=== PATIENT | male | born 1960 | race Caucasian/White ===

== ENCOUNTER 2018-12-23 22:42 | Emergency (ER) | payer BC ==
--- NOTE | 2018-12-23 23:05 | RAD ---
3 views left wrist: 12/23/2018 COMPARISON: None HISTORY: Fall, trauma, pain FINDINGS: No definite fracture or dislocation. There is a subtle lucency identified on the lateral ex amination involving the anterior cortex of the distal left radius. This could represent nondisplaced fracture or artifact. Correlation for point tenderness in this region is required. No widening of the scapholunate interval. Alignment appears normal on the lateral examination. If sym ptoms persist, follow-up imaging in 7-10 days with dedicated scaphoid views recommended. IMPRESSION: Subtle lucency overlies the anterior distal left radial cortex on the lateral view as det michaela above.
== END 2018-12-24 00:47 | disposition home or self-care (01) ==
LOC: ERS 22:42
DX: S52.502A Unspecified fracture of the lower end of left radius, initial encounter for closed fracture (principal); I10 Essential (primary) hypertension; Z79.899 Other long term (current) drug therapy; W19.XXXA Unspecified fall, initial encounter
CPT/HCPCS: 25600

== ENCOUNTER 2019-05-14 12:47 | Outpatient (CLI) | payer MEDICARE, BC ==
[~2019-05-14 12:47] MED LIST: Gadobenate Dimeglumine 529 MG/1 ML (20ML VIAL) ONE
--- NOTE | 2019-05-14 15:06 | MRI ---
MRI of the lumbar spine with and without contrast 05/14/2019 COMPARISON: None HISTORY: Lumbar radiculopathy, back pain radiating down bilateral lower extremities with bilateral fo ot tingling TECHNIQUE: Multiplanar multisequence MR imaging of the lumbar spine is provided with and without cont rast. FINDINGS: The sagittal STIR imaging demonstrates no focal area of osseous marrow edema. On the basis of 5 lumbar type vertebral bodies, the conus medullaris terminates at the T12-L1 level. Lumbar vertebral body height and alignment is within normal limits. T12-L1: Intervertebral disc height and signal intensity is within normal limits with no significant c entral canal or neural foraminal stenosis. L1-2: Intervertebral disc height and signal intensity is within normal limits with no significant daniel tral canal or neural foraminal stenosis. L2-3: Mild bilateral facet hypertrophy. Mild anterior osteophyte formation. No significant central ca nal or neural foraminal stenosis. L3-4: Intervertebral disc height and signal intensity is within normal limits with no significant daniel tral canal or neural foraminal stenosis. L4-5: There is disc space narrowing and disc desiccation with mild disc bulge. There is a small left paracentral annular tear. There is mild bilateral facet hypertrophy. No significant central canal or neural foraminal stenosis. L5-S1: No significant central canal or neural foraminal stenosis. Disc bulge. The imaged retroperitoneal structures appear grossly unremarkable. The postcontrast imaging demonstrates no abnormal enhancement involving the contents of the thecal sa c, the intervertebral discs, or the imaged osseous structures. IMPRESSION: Mild degenerative disc disease as detailed above. Transcribed Date/Time: 05/14/2019 3:14 PM
--- NOTE | 2019-05-14 15:26 | MRI ---
Cervical spine MRI with and without contrast: 05/14/2019 COMPARISON: None HISTORY: Cervical pain with bilateral upper extremity radiculopathy TECHNIQUE: Multiplanar multisequence MR imaging of the cervical spine obtained with and without contr ast FINDINGS: Anterior discectomy and fusion hardware is present at C5-6. The sagittal STIR imaging demonstrates no focal area of osseous marrow edema. The craniocervical junction and cervicothoracic junction appear intact. There is no anterolisthesis o r retrolisthesis. No prevertebral soft tissue swelling is noted. C2-3: There is disc space narrowing and disc desiccation with no central canal stenosis. There is mil d bilateral facet and uncovertebral osteophyte formation with no significant neural foraminal stenosis on either side. C3-4: There is disc space narrowing, disc desiccation, and mild disc bulge with partial effacement of the ventral thecal sac and mild central canal stenosis. Bilateral facet and uncovertebral osteophyte formation noted, left greater than right, with moderate right severe left neural foraminal stenosis. C4-5: There is disc space narrowing with disc desiccation and mild disc bulge partially effacing the ventral thecal sac and leading to a mild degree of central stenosis. There is bilateral facet and uncovertebral osteophyte formation with moderate bilateral neural foraminal stenosis, left greater th an right. C5-6: Bilateral facet hypertrophy. No central canal stenosis. Mild right neural foraminal stenosis. C6-7: Disc space narrowing with disc desiccation and mild disc bulge causes mild central canal stenos is. Bilateral uncovertebral osteophyte formation noted, left greater than right. Mild/moderate left neural foraminal stenosis. No significant right neural foraminal stenosis. C7-T1: No central canal or neural foraminal stenosis. No focal area of abnormal signal intensity is identified within the cervical cord. Postcontrast imaging demonstrates no abnormal enhancement within the cervical spine. IMPRESSION: Postoperative and degenerative change within the cervical spine as detailed above. Transcribed Date/Time: 05/14/2019 3:48 PM
== END 2019-05-14 12:48 | disposition home or self-care (01) ==
LOC: BICMRI 12:47
PROVIDERS: ATTEND Neurological Surgery
DX: M47.22 Other spondylosis with radiculopathy, cervical region (principal); M51.16 Intervertebral disc disorders with radiculopathy, lumbar region; Z98.890 Other specified postprocedural states
CPT/HCPCS: 72156; 72158; 82565; A9577

== ENCOUNTER 2019-10-26 13:49 | Emergency (ER) | payer MEDICARE, OTHER ==
--- NOTE | 2019-10-26 14:42 | RAD ---
EXAM: Portable chest PROVIDED CLINICAL HISTORY: Shortness of breath COMPARISON: None FINDINGS: Cardiac and mediastinal silhouette is within normal limits. No focal consolidation, pleural fluid or pneumothorax evident. IMPRESSION: No evidence for an acute cardiopulmonary process.
[2019-10-26 15:00] LABS: #Eosinphils 0.1 thou/uL (0.0-0.7); #Lymphocytes 1.2 thou/uL (1.20-3.40); #Monocytes 0.9 thou/uL (0.11-0.59); #Neutrophils 9.7 thou/uL (1.40-6.50); %Basophils 0.3 % (0.0-1.0); %Eosinophils 0.7 % (0.0-10.0); %Lymphocytes 9.7 % (21.0-51.0); %Monocytes 7.6 % (0.0-10.0); %Neutrophils 81.8 % (42.0-75.0); Hemoglobin 15.1 g/dL (14.0-18.0); Mean Corpuscular HGB CONC 35.2 g/dL (32.0-36.0); Mean Corpuscular Hemoglobin 32.4 pg (27.0-31.0); Mean Platelet Volume 7.8 fL (7.4-10.4); Platelet Count 174 thou/uL (130-400); RBC Distribution Width 11.7 % (11.5-14.5); Red Blood Cell (RBC) Count 4.67 mill/uL (4.70-6.10); White Blood Cell (WBC) Count 11.9 thou/uL (4.8-10.8)
[2019-10-26 15:20] LABS: ALT (SGPT) 55 U/L (8-55); AST (SGOT) 35 U/L (5-34); Albumin 4.4 g/dL (3.5-5.0); Alkaline Phosphatase 63 U/L (40-110); Anion Gap 12 mmol/L (10-20); BUN (Urea Nitrogen) 18 mg/dL (8.4-25.7); Bilirubin, Total 0.6 mg/dL (0.2-1.2); Calc. Creatinine Clearance 0 mL/min (70-130); Calcium 9.3 mg/dL (7.8-10.44); Carbon Dioxide 26 mmol/L (22-29); Chloride 103 mmol/L (98-107); Estimated GFR-MDRD 71; Globulin 2.3 g/dL (2.4-3.5); Glucose 80 mg/dL (70-105); Lipase 45 U/L (8-78); Potassium 4.7 mmol/L (3.5-5.1); Protein, Total 6.7 g/dL (6.0-8.3); Sodium 136 mmol/L (136-145)
== END 2019-10-26 15:55 | disposition home or self-care (01) ==
LOC: ERS 13:49
DX: R06.00 Dyspnea, unspecified (principal); I10 Essential (primary) hypertension; I49.9 Cardiac arrhythmia, unspecified; Z79.899 Other long term (current) drug therapy
CPT/HCPCS: 36415; 71045; 80053; 83690; 84484; 85025; 93005

== ENCOUNTER 2021-05-26 07:57 | Outpatient (CLI) | payer MEDICARE, OTHER | END 2021-05-26 07:58 | disposition home or self-care (01) | LOC: BICMAMMO 07:57 | PROVIDERS: ATTEND Registered Nurse | DX: M85.89 Other specified disorders of bone density and structure, multiple sites (principal) | CPT/HCPCS: 77080 ==

== ENCOUNTER 2021-07-02 11:55 | Outpatient (CLI) | payer MEDICARE, OTHER ==
[2021-07-02 13:32] LABS: Hemoglobin 15.5 g/dL (13.5-17.5); Mean Corpuscular HGB CONC 34.5 g/dL (32.0-36.0); Mean Corpuscular Hemoglobin 30.8 pg (27.0-33.0); Mean Corpuscular Volume 89.1 fl (81.2-95.1); Platelet Count 179 10x3/uL (150-450); RBC Distribution Width 12.2 % (11.5-14.5); Red Blood Cell (RBC) Count 5.04 10x6/uL (4.32-5.72); White Blood Cell (WBC) Count 5.8 10x3/uL (3.5-10.5)
[2021-07-02 13:40] LABS: PTT 24.2 sec (22.0-33.0); Prothrombin Time 11.4 sec (9.5-12.1)
[2021-07-02 13:46] LABS: Anion Gap 13 mmol/L (10-20); BUN (Urea Nitrogen) 16 mg/dL (8.4-25.7); Calc. Creatinine Clearance 0 mL/min (70-130); Calcium 9.6 mg/dL (7.8-10.44); Carbon Dioxide 26 mmol/L (23-31); Chloride 105 mmol/L (98-107); Glucose 144 mg/dL (80-115); Potassium 4.5 mmol/L (3.5-5.1); Sodium 139 mmol/L (136-145)
[2021-07-03 14:28] LABS: SARS-CoV-2 PCR by NAA Not Detected (NotDetected)
== END 2021-07-02 11:56 | disposition home or self-care (01) ==
LOC: LABBT 11:55
PROVIDERS: ATTEND Urology
DX: Z01.818 Encounter for other preprocedural examination (principal); Z12.5 Encounter for screening for malignant neoplasm of prostate; M47.26 Other spondylosis with radiculopathy, lumbar region; N40.1 Benign prostatic hyperplasia with lower urinary tract symptoms; I10 Essential (primary) hypertension; E11.9 Type 2 diabetes mellitus without complications; N39.41 Urge incontinence; R39.11 Hesitancy of micturition; N35.916 Unspecified urethral stricture, male, overlapping sites; Z87.898 Personal history of other specified conditions; Z20.822 Contact with and (suspected) exposure to COVID-19
CPT/HCPCS: 80048; 85027; 85610; 85730; 93005; U0003; U0005; 93010

== ENCOUNTER 2021-07-07 07:12 | Day surgery (SDC) | payer MEDICARE, OTHER ==
[2021-07-06 11:57] VITALS: BMI 31.9
[2021-07-07] MEDS ORDERED: Levofloxacin 500 mg/D5W 100 ml Premix Bag ONE (07:53)
[2021-07-07] MEDS ORDERED: Iothalamate Meglumine 60% 50 ML VIAL FS ONE (08:52)
[2021-07-07] MEDS ORDERED: Fentanyl 100 MCG/2 ML VIAL ONE ×2 (08:55→11:47)
[2021-07-07] MEDS ORDERED: Dexamethasone 20 MG/5 ML VIAL ONE (09:19)
[2021-07-07] MEDS ORDERED: Ondansetron PF 4 MG/2 ML Vial ONE (09:19)
[2021-07-07] MEDS ORDERED: Lidocaine 1% PF 5 ML VIAL ONE (09:19)
[2021-07-07] MEDS ORDERED: PROPOFOL 200 MG/20 ML VIAL ONE (09:19)
[2021-07-07] MEDS ORDERED: Oxybutynin 5 MG TAB ONE (10:45)
[2021-07-07] MEDS ORDERED: Phenazopyridine HCl 100 MG TAB ONE (10:45)
[2021-07-07] MEDS ORDERED: HYDROcodone/Acetaminophen 5/325 mg Tablet ONE (12:19)
== END 2021-07-07 13:08 | disposition home or self-care (01) ==
LOC: SDC 07:12
PROVIDERS: ATTEND Urology
PROC: 0TND8ZZ Release Urethra, Via Natural or Artificial Opening Endoscopic (ICD-10-PCS; principal; 2021-07-07)
DX: N35.912 Unspecified bulbous urethral stricture, male (principal); N40.1 Benign prostatic hyperplasia with lower urinary tract symptoms; N13.8 Other obstructive and reflux uropathy; R39.11 Hesitancy of micturition; R35.0 Frequency of micturition; R35.1 Nocturia; N39.41 Urge incontinence; N32.89 Other specified disorders of bladder; I10 Essential (primary) hypertension; E78.5 Hyperlipidemia, unspecified; E03.9 Hypothyroidism, unspecified; E11.9 Type 2 diabetes mellitus without complications; K21.9 Gastro-esophageal reflux disease without esophagitis; M47.26 Other spondylosis with radiculopathy, lumbar region; E66.9 Obesity, unspecified; Z68.31 Body mass index [BMI] 31.0-31.9, adult; Z86.73 Personal history of transient ischemic attack (TIA), and cerebral infarction without residual deficits; Z79.84 Long term (current) use of oral hypoglycemic drugs; Z79.899 Other long term (current) drug therapy; Z88.8 Allergy status to other drugs, medicaments and biological substances; Z98.1 Arthrodesis status
CPT/HCPCS: 52276; 74420; Q9961; J1100; J1956; J2405; J2704; J3010

== ENCOUNTER 2022-01-13 13:13 | Outpatient (CLI) | payer MEDICARE, OTHER ==
[2022-01-13 14:07] LABS: Bilirubin Neg (Negative); Blood, Urine Negative (Negative); Clarity Clear (Clear); Glucose, Urine (Dipstick) 250 mg/dL (Negative); Ketone, Urine Negative (Negative); Leukocyte Negative (Negative); Nitrite Negative (Negative); Protein, Urine (Dipstick) Negative (Neg-Trace); Specific Gravity, Urine 1.015 (1.002-1.036); pH, Urine 6.5 (5.0-9.0)
[2022-01-13 14:20] LABS: Bacteria/HPF None Seen HPF (None Seen); RBC/HPF 0-3 HPF (0-3); WBC/HPF 0-3 HPF (0-3)
[2022-01-13 14:21] LABS: Hemoglobin 15.4 g/dL (13.5-17.5); Mean Corpuscular HGB CONC 34.8 g/dL (32.0-36.0); Mean Corpuscular Hemoglobin 31.4 pg (27.0-33.0); Mean Corpuscular Volume 90.2 fl (81.2-95.1); Mean Platelet Volume 10.8 fl (7.4-10.4); Platelet Count 175 10x3/uL (150-450); RBC Distribution Width 12.5 % (11.5-14.5); White Blood Cell (WBC) Count 5.8 10x3/uL (3.5-10.5)
[2022-01-13 14:27] LABS: PTT 21.7 sec (22.0-33.0); Prothrombin Time 10.9 sec (9.5-12.1)
[2022-01-13 14:31] LABS: Anion Gap 16 mmol/L (10-20); BUN (Urea Nitrogen) 11 mg/dL (8.4-25.7); Calc. Creatinine Clearance 0 mL/min (70-130); Calcium 9.4 mg/dL (7.8-10.44); Carbon Dioxide 26 mmol/L (23-31); Chloride 104 mmol/L (98-107); Glucose 198 mg/dL (80-115); Potassium 4.5 mmol/L (3.5-5.1); Sodium 141 mmol/L (136-145)
[2022-01-14 00:17] LABS: SARS-CoV-2 PCR by NAA Not Detected (NotDetected)
== END 2022-01-13 13:14 | disposition home or self-care (01) ==
LOC: LABBT 13:13
PROVIDERS: ATTEND Urology
DX: Z01.818 Encounter for other preprocedural examination (principal); N35.919 Unspecified urethral stricture, male, unspecified site; Z20.822 Contact with and (suspected) exposure to COVID-19
CPT/HCPCS: 80048; 81001; 85027; 85610; 85730; 87086; 93005; U0003; U0005; 93010

== ENCOUNTER 2022-01-18 06:10 | Day surgery (SDC) | payer MEDICARE, OTHER ==
[2022-01-14 08:45] VITALS: BMI 31.9
[2022-01-18] MEDS ORDERED: Iopamidol 15 ML ONE (07:03)
[2022-01-18] MEDS ORDERED: Lidocaine 0.5%/Epinephrine 1:200,000 50 ml Vial ONE (07:18)
[2022-01-18] MEDS ORDERED: Lidocaine 1% w/Epinephrine 1:100K 20 ML VIAL ONE (07:18)
[2022-01-18] MEDS ORDERED: Fentanyl 100 MCG/2 ML VIAL ONE ×2 (07:21→08:37)
[2022-01-18] MEDS ORDERED: CEFAZOLIN 2 GM VIAL ONE (07:29)
[2022-01-18] MEDS ORDERED: Sodium Chloride 0.9% 100 ML ONE (07:29)
[2022-01-18] MEDS ORDERED: PROPOFOL 200 MG/20 ML VIAL ONE (07:38)
[2022-01-18] MEDS ORDERED: Lidocaine 1% PF 5 ML VIAL ONE (07:38)
[2022-01-18] MEDS ORDERED: Ondansetron PF 4 MG/2 ML Vial ONE (07:38)
[2022-01-18] MEDS ORDERED: Dexamethasone 20 MG/5 ML VIAL ONE (07:38)
[2022-01-18] MEDS ORDERED: PHENYLEPHRINE-NS 100 MCG/ML 10 ML SYRINGE ONE (07:38)
[2022-01-18] MEDS ORDERED: Phenazopyridine HCl 100 MG TAB ONE (08:32)
[2022-01-18] MEDS ORDERED: Ketorolac Tromethamine 30 MG/ML VIAL ONE (08:32)
[2022-01-18] MEDS ORDERED: Oxybutynin 5 MG TAB ONE (08:32)
== END 2022-01-18 10:08 | disposition home or self-care (01) ==
LOC: SDC 06:10
PROVIDERS: ATTEND Urology
PROC: 0T9B00Z Drainage of Bladder with Drainage Device, Open Approach (ICD-10-PCS; principal; 2022-01-18)
DX: N35.912 Unspecified bulbous urethral stricture, male (principal); N32.89 Other specified disorders of bladder; I10 Essential (primary) hypertension; E03.9 Hypothyroidism, unspecified; K21.9 Gastro-esophageal reflux disease without esophagitis; M81.0 Age-related osteoporosis without current pathological fracture; Z79.84 Long term (current) use of oral hypoglycemic drugs; Z79.890 Hormone replacement therapy; Z79.899 Other long term (current) drug therapy; Z88.8 Allergy status to other drugs, medicaments and biological substances
CPT/HCPCS: 74420; J1100; J1885; J2001; J2405; J2704; J3010; J3490; Q9967

== ENCOUNTER 2022-01-27 12:50 | Outpatient (CLI) | payer MEDICARE, OTHER | END 2022-01-27 12:51 | disposition home or self-care (01) | LOC: LABBT 12:50 | PROVIDERS: ATTEND Urology | DX: N35.914 Unspecified anterior urethral stricture, male (principal); Z20.822 Contact with and (suspected) exposure to COVID-19 | CPT/HCPCS: U0003; U0005 ==

== ENCOUNTER 2022-02-01 06:50 | Inpatient (IN) | payer MEDICARE, OTHER ==
[2022-01-28 11:01] VITALS: BMI 31.9
[2022-02-01] MEDS ORDERED: HYDROmorphone 0.5 MG/0.5 ML SYRINGE ONE (08:37)
[2022-02-01] MEDS ORDERED: Chlorhexidine Gluconate 15 ML UDCUP SSP ONE (08:37)
[2022-02-01] MEDS ORDERED: Bupivacaine 0.25% HCL 30 ML VIAL ONE (08:37)
[2022-02-01] MEDS ORDERED: Midazolam HCl 2 mg/2 ml Vial ONE (08:37)
[2022-02-01] MEDS ORDERED: EPINEPHrine 1 MG/ML AMP ONE (08:37)
[2022-02-01] MEDS ORDERED: Fentanyl 100 MCG/2 ML VIAL ONE (08:37)
[2022-02-01] MEDS ORDERED: Sodium Chloride 0.9% 100 ML ONE (08:40)
[2022-02-01] MEDS ORDERED: cefOXitin 2 GM VIAL ONE (08:40)
[2022-02-01] MEDS ORDERED: Dexamethasone 20 MG/5 ML VIAL ONE (08:58)
[2022-02-01] MEDS ORDERED: ePHEDrine 50 MG/ML VIAL ONE (08:58)
[2022-02-01] MEDS ORDERED: Rocuronium Bromide 10 MG/ML (10ML VIAL) ONE (08:58)
[2022-02-01] MEDS ORDERED: Glycopyrrolate 0.2 MG/ML 5 ML SYRINGE ONE (08:58)
[2022-02-01] MEDS ORDERED: Lidocaine 1% PF 5 ML VIAL ONE (08:58)
[2022-02-01] MEDS ORDERED: Succinylcholine 200 MG/10 ml SYRINGE FS ONE (08:58)
[2022-02-01] MEDS ORDERED: PROPOFOL 200 MG/20 ML VIAL ONE (08:58)
[2022-02-01] MEDS ORDERED: Non-Formulary Medication 1 EACH PO PRN (12:25)
[2022-02-01] MEDS ORDERED: HYDROmorphone 2 MG/ML VIAL SLOW IVP PRN (12:30)
[2022-02-01] MEDS ORDERED: Ondansetron HCl/PF 4 MG/2 ML Vial IVP PRN (12:30)
[2022-02-01] MEDS ORDERED: Promethazine HCl 25 MG/ML VIAL IM/IV PRN (12:30)
[2022-02-01] MEDS ORDERED: fentaNYL Citrate/PF 100 MCG/2 ML SYRINGE ONE (12:53)
[2022-02-01] MEDS ORDERED: Aluminum & Magnesium Hydroxide 60 ML, Lidocaine 2% Viscous Solution 30 ML, diphenhydrAM... SSW PRN (15:43)
[2022-02-01] MEDS ORDERED: Oxybutynin 5 MG TAB PO PRN (15:43)
[2022-02-01] MEDS ORDERED: Ondansetron PF 4 MG/2 ML Vial IVP PRN (15:43)
[2022-02-01] MEDS ORDERED: Zolpidem Tartrate 5 MG TAB PO PRN (15:43)
[2022-02-01] MEDS ORDERED: hydrALAZINE 20 MG/ML VIAL SLOW IVP PRN (15:43)
[2022-02-01] MEDS ORDERED: Morphine 4 MG/ML VIAL SLOW IVP PRN (15:43)
[2022-02-01] MEDS ORDERED: diphenhydrAMINE 50 MG/ML VIAL IVP PRN (15:43)
[2022-02-01] MEDS: Hyoscyamine Sulfate SL 0.125 mg Tablet SL SCH ×3 (16:46→23:54)
[2022-02-01] MEDS: CEFAZOLIN 2 GM in Sodium Chloride 0.9% 100 ML IVPB SCH ×2 (16:46→23:55)
[2022-02-01] MEDS: Sodium Chloride 0.9% 1,000 ML IV SCH ×2 (16:46→23:55)
[2022-02-01] MEDS ORDERED: CEFAZOLIN 2 GM in Sodium Chloride 0.9% 100 ML IVPB SCH (17:00)
[2022-02-01] MEDS: Ketorolac Tromethamine 30 MG/ML VIAL IVP SCH ×2 (18:23→23:54)
[2022-02-01] MEDS: HYDROcodone/Acetaminophen 5/325 mg Tablet PO PRN (21:37)
[2022-02-02] MEDS: Hyoscyamine Sulfate SL 0.125 mg Tablet SL SCH ×3 (06:25→17:17)
[2022-02-02] MEDS: Ketorolac Tromethamine 30 MG/ML VIAL IVP SCH ×3 (06:26→17:15)
[2022-02-02] MEDS: HYDROcodone/Acetaminophen 5/325 mg Tablet PO PRN ×2 (08:33→19:21)
[2022-02-02] MEDS: CEFAZOLIN 2 GM in Sodium Chloride 0.9% 100 ML IVPB SCH ×2 (08:34→17:15)
[2022-02-02] MEDS: Sodium Chloride 0.9% 1,000 ML IV SCH ×2 (08:35→17:23)
[2022-02-02 10:16] LABS: Hemoglobin 12.4 g/dL (14.0-18.0); Mean Corpuscular HGB CONC 34.6 g/dL (32.0-36.0); Mean Corpuscular Hemoglobin 32.6 pg (27.0-31.0); Mean Corpuscular Volume 94.2 fL (78.0-98.0); Mean Platelet Volume 7.3 fL (7.4-10.4); Platelet Count 143 thou/uL (130-400); RBC Distribution Width 11.8 % (11.5-14.5); Red Blood Cell (RBC) Count 3.81 mill/uL (4.70-6.10); White Blood Cell (WBC) Count 19.9 thou/uL (4.8-10.8)
[2022-02-02 10:38] LABS: Band 39 % (5-11); Lymphocytes 2 % (21-51); MDiff Complete? YES; Monocytes 1 % (0-10); Neutrophil 58 % (42-75); Platelet Morphology Comment Appears Adequate; Polychromasia SLIGHT = 2-3 cells (100X) (0-2/hpf)
[2022-02-02] MEDS: Tamsulosin HCl 0.4 MG CAP PO SCH (20:49)
[2022-02-02] MEDS: Rosuvastatin 20 MG TAB PO SCH (20:49)
[2022-02-02] MEDS: clonazePAM 0.5 MG TAB PO SCH (20:49)
[2022-02-02] MEDS: Docusate 100 MG CAP PO PRN (20:52)
[2022-02-02] MEDS ORDERED: Non-Formulary Item 1 EACH (Clonazepam [Clonazepam] 0.25 MG Tab.Rapdis) PO SCH (21:00)
[2022-02-03] MEDS: Hyoscyamine Sulfate SL 0.125 mg Tablet SL SCH ×4 (00:15→18:41)
[2022-02-03] MEDS: CEFAZOLIN 2 GM in Sodium Chloride 0.9% 100 ML IVPB SCH (00:15)
[2022-02-03] MEDS: Ketorolac Tromethamine 30 MG/ML VIAL IVP SCH ×4 (00:19→18:41)
[2022-02-03] MEDS ORDERED: Vancomycin 1 GM in Premix Bag 1 BAG IVPB SCH (01:15)
[2022-02-03] MEDS: Levothyroxine Sodium 50 MCG TAB PO SCH (06:33)
[2022-02-03] MEDS: Sodium Chloride 0.9% 1,000 ML IV SCH ×3 (06:36→22:30)
[2022-02-03] MEDS: DULoxetine 60 MG CAP PO SCH (08:47)
[2022-02-03] MEDS ORDERED: ESOMEPRAZOLE MAGNESIUM 20 MG PO SCH (09:00)
[2022-02-03] MEDS ORDERED: Non-Formulary Item 1 EACH (Levothyroxine Sodium [Levothyroxine] 50 MCG Capsule) PO SCH (09:00)
[2022-02-03 09:15] LABS: Anion Gap 11 mmol/L (10-20); BUN (Urea Nitrogen) 15 mg/dL (8.4-25.7); Calc. Creatinine Clearance 99 mL/min (70-130); Calcium 8.4 mg/dL (7.8-10.44); Carbon Dioxide 21 mmol/L (23-31); Chloride 105 mmol/L (98-107); Glucose 125 mg/dL (80-115); Sodium 133 mmol/L (136-145)
[2022-02-03 09:20] LABS: Band 12 % (5-11); Hemoglobin 11.9 g/dL (14.0-18.0); Lymphocytes 10 % (21-51); MDiff Complete? YES; Mean Corpuscular HGB CONC 34.5 g/dL (32.0-36.0); Mean Corpuscular Hemoglobin 32.8 pg (27.0-31.0); Mean Corpuscular Volume 95.2 fL (78.0-98.0); Mean Platelet Volume 7.4 fL (7.4-10.4); Monocytes 3 % (0-10); Neutrophil 75 % (42-75); Platelet Count 113 thou/uL (130-400); Platelet Morphology Comment Appears Decreased; RBC Distribution Width 11.9 % (11.5-14.5); RBC Morphology Normal; Red Blood Cell (RBC) Count 3.62 mill/uL (4.70-6.10); White Blood Cell (WBC) Count 15.5 thou/uL (4.8-10.8)
[2022-02-03] MEDS: Vancomycin 1.5 GRAM/300 ML BAG 1.5 GM in Premix Bag 1 BAG IVPB SCH (13:27)
[2022-02-03] MEDS: Docusate 100 MG CAP PO PRN (20:37)
[2022-02-03] MEDS: Rosuvastatin 20 MG TAB PO SCH (20:37)
[2022-02-03] MEDS: clonazePAM 0.5 MG TAB PO SCH (20:37)
[2022-02-03] MEDS: Tamsulosin HCl 0.4 MG CAP PO SCH (20:37)
[2022-02-04] MEDS: Hyoscyamine Sulfate SL 0.125 mg Tablet SL SCH ×3 (00:16→13:03)
[2022-02-04] MEDS: Vancomycin 1.5 GRAM/300 ML BAG 1.5 GM in Premix Bag 1 BAG IVPB SCH ×2 (00:16→13:03)
[2022-02-04] MEDS: Ketorolac Tromethamine 30 MG/ML VIAL IVP SCH ×3 (00:16→12:01)
[2022-02-04] MEDS: HYDROcodone/Acetaminophen 5/325 mg Tablet PO PRN ×2 (00:24→13:21)
[2022-02-04] MEDS: Levothyroxine Sodium 50 MCG TAB PO SCH (05:50)
[2022-02-04 06:09] LABS: #Eosinphils 0.1 thou/uL (0.0-0.7); #Lymphocytes 0.9 thou/uL (1.20-3.40); #Monocytes 0.6 thou/uL (0.11-0.59); #Neutrophils 8.3 thou/uL (1.40-6.50); %Basophils 0.3 % (0.0-1.0); %Eosinophils 1.2 % (0.0-10.0); %Lymphocytes 9.2 % (21.0-51.0); %Neutrophils 83.4 % (42.0-75.0); Hemoglobin 11.1 g/dL (14.0-18.0); Mean Corpuscular Hemoglobin 32.6 pg (27.0-31.0); Mean Corpuscular Volume 95.7 fL (78.0-98.0); Mean Platelet Volume 7.7 fL (7.4-10.4); Platelet Count 101 thou/uL (130-400); RBC Distribution Width 11.7 % (11.5-14.5); Red Blood Cell (RBC) Count 3.42 mill/uL (4.70-6.10)
[2022-02-04 06:11] LABS: Anion Gap 10 mmol/L (10-20); BUN (Urea Nitrogen) 12 mg/dL (8.4-25.7); Calc. Creatinine Clearance 121 mL/min (70-130); Calcium 8.3 mg/dL (7.8-10.44); Carbon Dioxide 24 mmol/L (23-31); Chloride 109 mmol/L (98-107); Glucose 101 mg/dL (80-115); Potassium 4.3 mmol/L (3.5-5.1); Sodium 139 mmol/L (136-145)
[2022-02-04] MEDS: DULoxetine 60 MG CAP PO SCH (08:10)
[2022-02-04] MEDS: Sodium Chloride 0.9% 1,000 ML IV SCH (08:11)
[2022-02-04 08:22] VITALS: BP 114/70; TEMP 97.4
== END 2022-02-04 14:31 | disposition home or self-care (01) | DRG 671 ==
LOC: SDC 06:50 → T4-A 08:45 → OBSVTOIN 02-02 15:44
PROVIDERS: ADMIT Urology; ATTEND Urology
PROC: 0TU Urinary System, Supplement (ICD-10-PCS; principal; 2022-02-02)
PROC: 0CB70ZZ Excision of Tongue, Open Approach (ICD-10-PCS; 2022-02-02)
PROC: 0T2BX0Z Change Drainage Device in Bladder, External Approach (ICD-10-PCS; 2022-02-03)
DX: N35.914 Unspecified anterior urethral stricture, male (principal); N30.00 Acute cystitis without hematuria; N40.0 Benign prostatic hyperplasia without lower urinary tract symptoms; I10 Essential (primary) hypertension; E78.5 Hyperlipidemia, unspecified; E03.9 Hypothyroidism, unspecified; K21.9 Gastro-esophageal reflux disease without esophagitis; G89.29 Other chronic pain; G25.81 Restless legs syndrome; G47.00 Insomnia, unspecified; Z90.89 Acquired absence of other organs; Z98.1 Arthrodesis status; Z98.890 Other specified postprocedural states; Z79.899 Other long term (current) drug therapy; Z86.73 Personal history of transient ischemic attack (TIA), and cerebral infarction without residual deficits
CPT/HCPCS: 36415; 36416; 80048; 85025; 87040; 87086; 96374; 96375; 96376; G0378; J0171; J0690; J0694; J1100; J1170; J1885; J1956; J2250; J2270; J2704; J3010; J3370; J3490; J7050; S0020

== ENCOUNTER 2022-07-10 12:48 | Inpatient (IN) | payer MEDICARE, OTHER ==
[2022-07-10] MEDS ORDERED: Ondansetron PF 4 MG/2 ML Vial ONE (14:06)
[2022-07-10] MEDS ORDERED: Morphine 4 MG/ML VIAL ONE ×3 (14:06→17:36)
[2022-07-10] MEDS ORDERED: cefTRIAXone\\ROCEPHIN 2 GM VIAL ONE (14:28)
[2022-07-10] MEDS ORDERED: Ketorolac Tromethamine 30 MG/ML VIAL ONE (14:28)
[2022-07-10 14:30] LABS: Hemoglobin 15.5 g/dL (14.0-18.0); Mean Corpuscular HGB CONC 35.3 g/dL (32.0-36.0); Mean Corpuscular Volume 90.6 fl (78.0-98.0); Mean Platelet Volume 7.5 fL (7.4-10.4); Platelet Count 161 10x3/uL (130-400); Red Blood Cell (RBC) Count 4.86 mill/uL (4.70-6.10); White Blood Cell (WBC) Count 16.4 10x3/uL (4.8-10.8)
[2022-07-10 14:56] LABS: Band 9 % (5-11); Lymphocytes 5 % (21-51); MDiff Complete? YES; Monocytes 3 % (0-10); Neutrophil 81 % (42-75); Platelet Morphology Comment Appears Adequate; RBC Morphology Normal; Reactive Lymphocytes 2 % (0-10)
[2022-07-10 15:02] LABS: Albumin 4.4 g/dL (3.4-4.8)
[2022-07-10 15:03] LABS: Chloride 101 mmol/L (98-107)
[2022-07-10 15:05] LABS: Calcium 9.5 mg/dL (7.8-10.44); Globulin 3.1 g/dL (2.4-3.5); Glucose 116 mg/dL (80-115); Potassium 3.8 mmol/L (3.5-5.1); Protein, Total 7.5 g/dL (5.8-8.1); Sodium 135 mmol/L (136-145)
[2022-07-10 15:06] LABS: Anion Gap 15 mmol/L (10-20); Bilirubin, Total 1.6 mg/dL (0.2-1.2); Carbon Dioxide 23 mmol/L (23-31)
[2022-07-10 15:07] LABS: Alkaline Phosphatase 75 U/L (40-110)
[2022-07-10 15:08] LABS: Calc. Creatinine Clearance 0 mL/min (70-130); Estimated GFR 81
[2022-07-10 15:09] LABS: BUN (Urea Nitrogen) 17 mg/dL (8.4-25.7)
[2022-07-10 15:10] LABS: ALT (SGPT) 41 U/L (8-55); AST (SGOT) 29 U/L (5-34)
[2022-07-10 15:38] LABS: Bacteria/HPF Rare-Few HPF (None Seen); Bilirubin Negative (Negative); Blood, Urine Negative (Negative); Clarity Clear (Clear); Glucose, Urine (Dipstick) Normal (Negative); Ketone, Urine Trace mg/dL (Negative); Leukocyte 75 Leu/uL (Negative); Nitrite Negative (Negative); Protein, Urine (Dipstick) 30 mg/dL (Neg-Trace); RBC/HPF 0-3 HPF (0-3); Specific Gravity, Urine 1.025 (1.002-1.036); Squamous Epithelial 0-3 HPF (0-3); Urobilinogen Normal mg/dL (Less than 2)
[2022-07-10 16:14] LABS: SARS-CoV-2 NAA Rapid Test DETECTED (NotDetected)
[2022-07-10] MEDS ORDERED: Ondansetron PF 4 MG/2 ML Vial IVP PRN (17:02)
[2022-07-10] MEDS ORDERED: Ondansetron ODT 4 MG TAB PO PRN (17:02)
[2022-07-10] MEDS ORDERED: Calcium Carbonate 500 MG ChewTAB PO PRN (17:02)
[2022-07-10] MEDS ORDERED: Dextrose 5% in Water 1,000 ML IV PRN (17:06)
[2022-07-10] MEDS ORDERED: HumaLOG 300 UNITS/3 ML VIAL SC PRN (17:06)
[2022-07-10] MEDS ORDERED: Dextrose 50% Abboject 50 ML SYRINGE SLOW IVP PRN (17:06)
[2022-07-10 18:41] LABS: Lactic Acid 2.6 mmol/L (0.5-2.2)
[2022-07-10] MEDS ORDERED: Cefepime 1 GM in Sodium Chloride 0.9% 100 ML IVPB SCH (18:45)
[2022-07-10] MEDS ORDERED: Sodium Chloride 0.9% 1,000 ML IV SCH (18:45)
[2022-07-10] MEDS: Sodium Chloride 0.9% 1,000 ML IV SCH (20:40)
[2022-07-10] MEDS: Cefepime 1 GM in Sodium Chloride 0.9% 100 ML IVPB SCH (20:41)
[2022-07-10] MEDS: clonazePAM 0.5 MG TAB PO SCH (21:25)
[2022-07-10] MEDS: Rosuvastatin 20 MG TAB PO SCH (21:26)
[2022-07-10] MEDS: Tamsulosin HCl 0.4 MG CAP PO SCH (21:26)
[2022-07-10] MEDS: Morphine 4 MG/ML VIAL SLOW IVP PRN (21:26)
[2022-07-10 22:15] VITALS: BMI 31.8
[2022-07-11] MEDS: Ketorolac Tromethamine 30 MG/ML VIAL IVP PRN ×2 (00:04→05:35)
[2022-07-11 01:22] LABS: Lactic Acid 1.9 mmol/L (0.5-2.2)
[2022-07-11] MEDS ORDERED: Morphine 4 MG/ML VIAL SLOW IVP SCH (02:00)
[2022-07-11] MEDS: Sodium Chloride 0.9% 1,000 ML IV SCH ×2 (03:22→13:31)
[2022-07-11] MEDS: Levothyroxine Sodium 50 MCG TAB PO SCH (05:35)
[2022-07-11 07:57] LABS: Hemoglobin 13.5 g/dL (14.0-18.0); Mean Corpuscular Hemoglobin 32.6 pg (27.0-31.0); Mean Platelet Volume 7.2 fL (7.4-10.4); Platelet Count 140 10x3/uL (130-400); Red Blood Cell (RBC) Count 4.14 mill/uL (4.70-6.10); White Blood Cell (WBC) Count 25.6 10x3/uL (4.8-10.8)
[2022-07-11 08:12] LABS: ALT (SGPT) 28 U/L (8-55); AST (SGOT) 25 U/L (5-34); Albumin 3.3 g/dL (3.4-4.8); Alkaline Phosphatase 49 U/L (40-110); Anion Gap 12 mmol/L (10-20); BUN (Urea Nitrogen) 16 mg/dL (8.4-25.7); Calc. Creatinine Clearance 121 mL/min (70-130); Calcium 8.3 mg/dL (7.8-10.44); Carbon Dioxide 21 mmol/L (23-31); Chloride 107 mmol/L (98-107); Estimated GFR 98; Globulin 2.3 g/dL (2.4-3.5); Glucose 88 mg/dL (80-115); Potassium 3.7 mmol/L (3.5-5.1); Protein, Total 5.6 g/dL (5.8-8.1); Sodium 136 mmol/L (136-145)
[2022-07-11 09:06] LABS: Band 36 % (5-11); Lymphocytes 7 % (21-51); MDiff Complete? YES; Metamyelocyte 2 % (0-0); Neutrophil 55 % (42-75); Platelet Morphology Comment Appears Adequate; Polychromasia SLIGHT = 2-3 cells (100X) (0-2/hpf); Vacuoles SLIGHT
[2022-07-11] MEDS: DULoxetine 60 MG CAP PO SCH (09:07)
[2022-07-11] MEDS: Cefepime 1 GM in Sodium Chloride 0.9% 100 ML IVPB SCH (09:07)
[2022-07-11] MEDS: Enoxaparin Sodium 40 MG/0.4 ML SYRINGE SC SCH (09:07)
[2022-07-11] MEDS: Morphine 4 MG/ML VIAL SLOW IVP PRN ×2 (09:45→15:20)
[2022-07-11] MEDS: Senokot S 8.6-50 MG TAB PO PRN (13:16)
[2022-07-11] MEDS: Lactated Ringer's 1,000 ML IV SCH (21:32)
[2022-07-11] MEDS: Cefepime 2 GM in Sodium Chloride 0.9% 100 ML IVPB SCH (21:37)
[2022-07-11] MEDS: clonazePAM 0.5 MG TAB PO SCH (21:39)
[2022-07-11] MEDS: Rosuvastatin 20 MG TAB PO SCH (21:39)
[2022-07-11] MEDS: Tamsulosin HCl 0.4 MG CAP PO SCH (21:40)
[2022-07-11] MEDS: Acetaminophen 325 MG TAB PO PRN (21:41)
[2022-07-12] MEDS: Lactated Ringer's 1,000 ML IV SCH ×2 (05:04→13:21)
[2022-07-12] MEDS: Levothyroxine Sodium 50 MCG TAB PO SCH (05:05)
[2022-07-12] MEDS: Ketorolac Tromethamine 30 MG/ML VIAL IVP PRN ×2 (05:16→17:01)
[2022-07-12 06:34] LABS: Lactic Acid 1.6 mmol/L (0.5-2.2)
[2022-07-12 06:39] LABS: Band 30 % (5-11); Hemoglobin 12.2 g/dL (14.0-18.0); Lymphocytes 7 % (21-51); MDiff Complete? YES; Mean Corpuscular HGB CONC 33.2 g/dL (32.0-36.0); Mean Corpuscular Hemoglobin 30.7 pg (27.0-31.0); Mean Corpuscular Volume 92.5 fl (78.0-98.0); Mean Platelet Volume 6.9 fL (7.4-10.4); Monocytes 1 % (0-10); Neutrophil 62 % (42-75); Platelet Count 132 10x3/uL (130-400); Red Blood Cell (RBC) Count 3.97 mill/uL (4.70-6.10); White Blood Cell (WBC) Count 22.4 10x3/uL (4.8-10.8)
[2022-07-12 06:41] LABS: ALT (SGPT) 21 U/L (8-55); AST (SGOT) 21 U/L (5-34); Albumin 3.1 g/dL (3.4-4.8); Alkaline Phosphatase 59 U/L (40-110); Anion Gap 12 mmol/L (10-20); BUN (Urea Nitrogen) 12 mg/dL (8.4-25.7); Bilirubin, Total 1.1 mg/dL (0.2-1.2); Calc. Creatinine Clearance 121 mL/min (70-130); Calcium 8.6 mg/dL (7.8-10.44); Carbon Dioxide 20 mmol/L (23-31); Chloride 103 mmol/L (98-107); Estimated GFR 98; Globulin 2.6 g/dL (2.4-3.5); Glucose 121 mg/dL (80-115); Magnesium 1.4 mg/dL (1.6-2.6); Potassium 3.6 mmol/L (3.5-5.1); Protein, Total 5.7 g/dL (5.8-8.1); Sodium 131 mmol/L (136-145)
[2022-07-12] MEDS: Cefepime 2 GM in Sodium Chloride 0.9% 100 ML IVPB SCH ×2 (08:23→20:10)
[2022-07-12] MEDS: Enoxaparin Sodium 40 MG/0.4 ML SYRINGE SC SCH (08:24)
[2022-07-12] MEDS: DULoxetine 60 MG CAP PO SCH (08:24)
[2022-07-12] MEDS: Acetaminophen 325 MG TAB PO PRN ×2 (08:27→20:12)
[2022-07-12] MEDS ORDERED: Magnesium Sulfate In Water 4 GM in Premix Bag 1 BAG IVPB SCH (10:00)
[2022-07-12] MEDS: Senokot S 8.6-50 MG TAB PO PRN (17:04)
[2022-07-12] MEDS ORDERED: Lactated Ringer's 1,000 ML IV SCH (19:14)
[2022-07-12] MEDS: NS 0.9% w/ 20 MEQ KCL 1,000 ML/1,000 ML BAG IV SCH (20:05)
[2022-07-12] MEDS: Cholecalciferol 1,000 UNITS (25 MCG) TAB PO SCH (20:06)
[2022-07-12] MEDS: Ascorbic Acid 500 mg Chewable Tablet PO SCH (20:06)
[2022-07-12] MEDS: Rosuvastatin 20 MG TAB PO SCH (20:07)
[2022-07-12] MEDS: Tamsulosin HCl 0.4 MG CAP PO SCH (20:07)
[2022-07-12] MEDS: Zinc Sulfate 220 MG CAP PO SCH (20:07)
[2022-07-12] MEDS: clonazePAM 0.5 MG TAB PO SCH (20:07)
[2022-07-13] MEDS: Acetaminophen 325 MG TAB PO PRN ×2 (03:07→18:36)
[2022-07-13] MEDS ORDERED: Polyethylene Glycol 3350 17 GM Packet PO SCH (03:15)
[2022-07-13] MEDS: Levothyroxine Sodium 50 MCG TAB PO SCH (05:57)
[2022-07-13 05:58] LABS: Hemoglobin 11.7 g/dL (14.0-18.0); Mean Corpuscular HGB CONC 35.1 g/dL (32.0-36.0); Mean Corpuscular Hemoglobin 32.3 pg (27.0-31.0); Mean Platelet Volume 7.4 fL (7.4-10.4); Platelet Count 146 10x3/uL (130-400); RBC Distribution Width 11.8 % (11.5-14.5); White Blood Cell (WBC) Count 17.8 10x3/uL (4.8-10.8)
[2022-07-13 06:08] LABS: Anion Gap 9 mmol/L (10-20); BUN (Urea Nitrogen) 9 mg/dL (8.4-25.7); Calc. Creatinine Clearance 127 mL/min (70-130); Carbon Dioxide 24 mmol/L (23-31); Chloride 106 mmol/L (98-107); Estimated GFR 100; Glucose 109 mg/dL (80-115); Magnesium 1.9 mg/dL (1.6-2.6); Potassium 3.7 mmol/L (3.5-5.1); Sodium 135 mmol/L (136-145)
[2022-07-13 06:18] LABS: Band 18 % (5-11); Lymphocytes 6 % (21-51); MDiff Complete? YES; Monocytes 3 % (0-10); Neutrophil 70 % (42-75); Reactive Lymphocytes 3 % (0-10); Toxic Granulation SLIGHT
[2022-07-13] MEDS: Cefepime 2 GM in Sodium Chloride 0.9% 100 ML IVPB SCH ×2 (08:44→20:39)
[2022-07-13] MEDS: DULoxetine 60 MG CAP PO SCH (08:45)
[2022-07-13] MEDS: Enoxaparin Sodium 40 MG/0.4 ML SYRINGE SC SCH (08:45)
[2022-07-13] MEDS: NS 0.9% w/ 20 MEQ KCL 1,000 ML/1,000 ML BAG IV SCH ×2 (08:49→20:39)
[2022-07-13] MEDS: Morphine 4 MG/ML VIAL SLOW IVP PRN ×2 (08:50→20:52)
[2022-07-13] MEDS: Cholecalciferol 1,000 UNITS (25 MCG) TAB PO SCH (20:38)
[2022-07-13] MEDS: Zinc Sulfate 220 MG CAP PO SCH (20:38)
[2022-07-13] MEDS: clonazePAM 0.5 MG TAB PO SCH (20:38)
[2022-07-13] MEDS: Ascorbic Acid 500 mg Chewable Tablet PO SCH (20:38)
[2022-07-13] MEDS: Rosuvastatin 20 MG TAB PO SCH (20:38)
[2022-07-13] MEDS: Tamsulosin HCl 0.4 MG CAP PO SCH (20:39)
[2022-07-14] MEDS: Levothyroxine Sodium 50 MCG TAB PO SCH (05:30)
[2022-07-14] MEDS: Acetaminophen 325 MG TAB PO PRN (05:33)
[2022-07-14 06:21] LABS: Anion Gap 12 mmol/L (10-20); BUN (Urea Nitrogen) 10 mg/dL (8.4-25.7); Calc. Creatinine Clearance 139 mL/min (70-130); Calcium 8.2 mg/dL (7.8-10.44); Carbon Dioxide 22 mmol/L (23-31); Chloride 104 mmol/L (98-107); Estimated GFR 103; Glucose 87 mg/dL (80-115); Potassium 4.1 mmol/L (3.5-5.1); Sodium 134 mmol/L (136-145)
[2022-07-14] MEDS: Cefepime 2 GM in Sodium Chloride 0.9% 100 ML IVPB SCH ×2 (08:48→20:26)
[2022-07-14] MEDS: DULoxetine 60 MG CAP PO SCH (08:49)
[2022-07-14] MEDS: Benzonatate 100 MG CAP PO PRN (10:04)
[2022-07-14 10:27] LABS: Band 3 % (5-11); Lymphocytes 3 % (21-51); MDiff Complete? YES; Mean Corpuscular HGB CONC 33.4 g/dL (32.0-36.0); Mean Corpuscular Hemoglobin 31.4 pg (27.0-31.0); Mean Platelet Volume 7.5 fL (7.4-10.4); Metamyelocyte 2 % (0-0); Monocytes 3 % (0-10); Neutrophil 89 % (42-75); Platelet Count 189 10x3/uL (130-400); Platelet Morphology Comment Appears Adequate; RBC Distribution Width 11.9 % (11.5-14.5); RBC Morphology Normal; Red Blood Cell (RBC) Count 3.83 mill/uL (4.70-6.10); White Blood Cell (WBC) Count 14.3 10x3/uL (4.8-10.8)
[2022-07-14] MEDS ORDERED: Albuterol 200 PUFF (6.7GM INHALER) INH PRN (13:41)
[2022-07-14] MEDS: Albuterol 200 PUFF (6.7GM INHALER) INH SCH ×3 (16:00→18:02)
[2022-07-14] MEDS: Enoxaparin Sodium 40 MG/0.4 ML SYRINGE SC SCH (20:27)
[2022-07-14] MEDS: Ascorbic Acid 500 mg Chewable Tablet PO SCH (20:27)
[2022-07-14] MEDS: Cholecalciferol 1,000 UNITS (25 MCG) TAB PO SCH (20:27)
[2022-07-14] MEDS: Zinc Sulfate 220 MG CAP PO SCH (20:28)
[2022-07-14] MEDS: Morphine 4 MG/ML VIAL SLOW IVP PRN (20:28)
[2022-07-14] MEDS: Rosuvastatin 20 MG TAB PO SCH (20:28)
[2022-07-14] MEDS: guaiFENesin ER 600 MG TAB PO SCH (20:28)
[2022-07-14] MEDS: Tamsulosin HCl 0.4 MG CAP PO SCH (20:28)
[2022-07-14] MEDS: clonazePAM 0.5 MG TAB PO SCH (20:28)
[2022-07-15] MEDS: Albuterol 200 PUFF (6.7GM INHALER) INH SCH ×7 (00:55→23:56)
[2022-07-15] MEDS: Levothyroxine Sodium 50 MCG TAB PO SCH (05:06)
[2022-07-15 06:23] LABS: #Eosinphils 0.1 thou/uL (0.0-0.7); #Lymphocytes 1.3 thou/uL (1.20-3.40); #Monocytes 1.3 thou/uL (0.11-0.59); #Neutrophils 9.3 thou/uL (1.40-6.50); %Basophils 0.2 % (0.0-1.0); %Eosinophils 0.8 % (0.0-10.0); %Lymphocytes 10.7 % (21.0-51.0); %Monocytes 10.5 % (0.0-10.0); %Neutrophils 77.8 % (42.0-75.0); Hemoglobin 13.1 g/dL (14.0-18.0); Mean Corpuscular HGB CONC 34.2 g/dL (32.0-36.0); Mean Corpuscular Hemoglobin 32.3 pg (27.0-31.0); Mean Corpuscular Volume 94.4 fl (78.0-98.0); Mean Platelet Volume 7.6 fL (7.4-10.4); Platelet Count 211 10x3/uL (130-400); Red Blood Cell (RBC) Count 4.06 mill/uL (4.70-6.10); White Blood Cell (WBC) Count 11.9 10x3/uL (4.8-10.8)
[2022-07-15] MEDS: DULoxetine 60 MG CAP PO SCH (09:21)
[2022-07-15] MEDS: Cefepime 2 GM in Sodium Chloride 0.9% 100 ML IVPB SCH ×2 (09:21→20:20)
[2022-07-15] MEDS: guaiFENesin ER 600 MG TAB PO SCH ×2 (09:21→20:20)
[2022-07-15] MEDS: Benzonatate 100 MG CAP PO PRN (15:30)
[2022-07-15] MEDS: Enoxaparin Sodium 40 MG/0.4 ML SYRINGE SC SCH (20:20)
[2022-07-15] MEDS: Tamsulosin HCl 0.4 MG CAP PO SCH (20:20)
[2022-07-15] MEDS: Ascorbic Acid 500 mg Chewable Tablet PO SCH (20:20)
[2022-07-15] MEDS: Zinc Sulfate 220 MG CAP PO SCH (20:20)
[2022-07-15] MEDS: Cholecalciferol 1,000 UNITS (25 MCG) TAB PO SCH (20:21)
[2022-07-15] MEDS: clonazePAM 0.5 MG TAB PO SCH (20:21)
[2022-07-15] MEDS: Rosuvastatin 20 MG TAB PO SCH (20:21)
[2022-07-15] MEDS: Morphine 4 MG/ML VIAL SLOW IVP PRN (20:36)
[2022-07-16] MEDS: Albuterol 200 PUFF (6.7GM INHALER) INH SCH ×2 (03:26→05:54)
[2022-07-16] MEDS: Levothyroxine Sodium 50 MCG TAB PO SCH (05:54)
[2022-07-16 07:07] LABS: #Eosinphils 0.1 thou/uL (0.0-0.7); #Lymphocytes 1.4 thou/uL (1.20-3.40); #Monocytes 1.2 thou/uL (0.11-0.59); #Neutrophils 7.8 thou/uL (1.40-6.50); %Basophils 0.2 % (0.0-1.0); %Eosinophils 0.9 % (0.0-10.0); %Lymphocytes 13.6 % (21.0-51.0); %Monocytes 11.2 % (0.0-10.0); %Neutrophils 74.2 % (42.0-75.0); Hemoglobin 13.6 g/dL (14.0-18.0); Mean Corpuscular HGB CONC 33.7 g/dL (32.0-36.0); Mean Corpuscular Hemoglobin 31.5 pg (27.0-31.0); Mean Corpuscular Volume 93.4 fl (78.0-98.0); Mean Platelet Volume 7.2 fL (7.4-10.4); Platelet Count 275 10x3/uL (130-400); RBC Distribution Width 12.2 % (11.5-14.5); Red Blood Cell (RBC) Count 4.34 mill/uL (4.70-6.10); White Blood Cell (WBC) Count 10.4 10x3/uL (4.8-10.8)
[2022-07-16 09:02] VITALS: BP 122/77; TEMP 98.2
[2022-07-16] MEDS: Cefepime 2 GM in Sodium Chloride 0.9% 100 ML IVPB SCH (10:05)
[2022-07-16] MEDS: guaiFENesin ER 600 MG TAB PO SCH (10:05)
[2022-07-16] MEDS: DULoxetine 60 MG CAP PO SCH (10:07)
== END 2022-07-16 13:51 | disposition home or self-care (01) | DRG 871 ==
LOC: SUATTDRO 12:48 → ERS 12:48 → T4-B 17:02
PROVIDERS: ADMIT Internal Medicine; ATTEND Internal Medicine
PROC: 3E03329 Introduction of Other Anti-infective into Peripheral Vein, Percutaneous Approach (ICD-10-PCS; principal; 2022-07-10)
PROC: 8E0ZXY6 Isolation (ICD-10-PCS; 2022-07-10)
DX: A41.9 Sepsis, unspecified organism (principal); U07.1 COVID-19; N39.0 Urinary tract infection, site not specified; E87.1 Hypo-osmolality and hyponatremia; N45.3 Epididymo-orchitis; I10 Essential (primary) hypertension; E03.9 Hypothyroidism, unspecified; N40.0 Benign prostatic hyperplasia without lower urinary tract symptoms; E11.9 Type 2 diabetes mellitus without complications; F41.9 Anxiety disorder, unspecified; E11.649 Type 2 diabetes mellitus with hypoglycemia without coma; K76.0 Fatty (change of) liver, not elsewhere classified; E83.42 Hypomagnesemia; Z79.899 Other long term (current) drug therapy; Z88.8 Allergy status to other drugs, medicaments and biological substances; Z79.890 Hormone replacement therapy; Z79.84 Long term (current) use of oral hypoglycemic drugs
CPT/HCPCS: 36415; 36416; 71045; 74176; 76870; 80048; 80053; 81003; 81015; 83605; 83735; 85025; 87040; 87086; 93976; J0692; J0696; J1650; J1885; J2270; J2405; J3475; J3480; J3490; J7050; J7120

== ENCOUNTER 2022-08-22 20:55 | Emergency (ER) | payer MEDICARE ==
[2022-08-22 21:25] LABS: Bilirubin Negative (Negative); Blood, Urine Negative (Negative); Clarity Clear (Clear); Glucose, Urine (Dipstick) Normal (Negative); Ketone, Urine Negative (Negative); Leukocyte Negative Leu/uL (Negative); Nitrite Negative (Negative); Protein, Urine (Dipstick) Negative (Neg-Trace); Specific Gravity, Urine 1.014 (1.002-1.036); Urobilinogen Normal mg/dL (Less than 2); pH, Urine 5.5 (5.0-9.0)
[2022-08-22] MEDS ORDERED: Clindamycin/D5W 900 mg/50 ml Premix Bag ONE (21:43)
[2022-08-22 22:09] LABS: #Eosinphils 0.3 thou/uL (0.0-0.7); #Lymphocytes 1.7 thou/uL (1.20-3.40); #Monocytes 0.7 thou/uL (0.11-0.59); #Neutrophils 5.1 thou/uL (1.40-6.50); %Basophils 0.1 % (0.0-1.0); %Eosinophils 3.4 % (0.0-10.0); %Lymphocytes 22.3 % (21.0-51.0); %Monocytes 8.4 % (0.0-10.0); %Neutrophils 65.8 % (42.0-75.0); Hemoglobin 14.1 g/dL (14.0-18.0); Mean Corpuscular HGB CONC 34.4 g/dL (32.0-36.0); Mean Corpuscular Hemoglobin 31.4 pg (27.0-31.0); Mean Corpuscular Volume 91.3 fl (78.0-98.0); Mean Platelet Volume 7.3 fL (7.4-10.4); Platelet Count 199 10x3/uL (130-400); RBC Distribution Width 12.6 % (11.5-14.5); Red Blood Cell (RBC) Count 4.49 mill/uL (4.70-6.10); White Blood Cell (WBC) Count 7.8 10x3/uL (4.8-10.8)
[2022-08-22 22:29] LABS: ALT (SGPT) 27 U/L (8-55); AST (SGOT) 20 U/L (5-34); Albumin 4.3 g/dL (3.4-4.8); Alkaline Phosphatase 76 U/L (40-110); Anion Gap 11 mmol/L (10-20); BUN (Urea Nitrogen) 13 mg/dL (8.4-25.7); Bilirubin, Total 0.6 mg/dL (0.2-1.2); Calc. Creatinine Clearance 0 mL/min (70-130); Calcium 9.4 mg/dL (7.8-10.44); Carbon Dioxide 26 mmol/L (23-31); Chloride 105 mmol/L (98-107); Estimated GFR 76; Globulin 3.4 g/dL (2.4-3.5); Glucose 176 mg/dL (80-115); Potassium 4.1 mmol/L (3.5-5.1); Protein, Total 7.7 g/dL (5.8-8.1); Sodium 138 mmol/L (136-145)
[2022-08-22] MEDS ORDERED: Morphine 4 MG/ML VIAL ONE (22:42)
== END 2022-08-22 23:13 | disposition home or self-care (01) ==
LOC: ERS 20:55
DX: N45.2 Orchitis (principal); I10 Essential (primary) hypertension
CPT/HCPCS: 76870; 80053; 81003; 83605; 85025; 86140; 93976; 96374; 96375; J2270; J3490

== ENCOUNTER 2022-09-02 08:16 | Outpatient (CLI) | payer MEDICARE, OTHER | END 2022-09-02 08:17 | disposition home or self-care (01) | LOC: BICULT 08:16 | PROVIDERS: ATTEND Urology | DX: N45.3 Epididymo-orchitis (principal); N50.89 Other specified disorders of the male genital organs; N44.2 Benign cyst of testis; N50.3 Cyst of epididymis; R93.89 Abnormal findings on diagnostic imaging of other specified body structures | CPT/HCPCS: 76870; 93976 ==

== ENCOUNTER 2022-09-02 10:33 | Inpatient (IN) | payer MEDICARE, OTHER ==
[2022-09-02] MEDS ORDERED: Cefepime 2 GM VIAL ONE (10:54)
[2022-09-02] MEDS ORDERED: Morphine 4 MG/ML VIAL ONE (10:54)
[2022-09-02 11:23] LABS: #Basophils 0.1 thou/uL (0.0-0.2); #Eosinphils 0.1 thou/uL (0.0-0.7); #Lymphocytes 1.5 thou/uL (1.20-3.40); #Monocytes 0.5 thou/uL (0.11-0.59); #Neutrophils 7.3 thou/uL (1.40-6.50); %Basophils 0.7 % (0.0-1.0); %Eosinophils 0.9 % (0.0-10.0); %Lymphocytes 16.2 % (21.0-51.0); %Monocytes 5.4 % (0.0-10.0); %Neutrophils 76.8 % (42.0-75.0); Hemoglobin 15.4 g/dL (14.0-18.0); Mean Corpuscular HGB CONC 34.9 g/dL (32.0-36.0); Mean Corpuscular Hemoglobin 31.6 pg (27.0-31.0); Mean Corpuscular Volume 90.7 fl (78.0-98.0); Mean Platelet Volume 7.1 fL (7.4-10.4); Platelet Count 201 10x3/uL (130-400); RBC Distribution Width 12.7 % (11.5-14.5); Red Blood Cell (RBC) Count 4.88 mill/uL (4.70-6.10); White Blood Cell (WBC) Count 9.5 10x3/uL (4.8-10.8)
[2022-09-02 11:54] LABS: ALT (SGPT) 36 U/L (8-55); AST (SGOT) 32 U/L (5-34); Albumin 4.4 g/dL (3.4-4.8); Alkaline Phosphatase 77 U/L (40-110); Anion Gap 12 mmol/L (10-20); BUN (Urea Nitrogen) 19 mg/dL (8.4-25.7); Bilirubin, Total 0.5 mg/dL (0.2-1.2); Calc. Creatinine Clearance 0 mL/min (70-130); Calcium 9.7 mg/dL (7.8-10.44); Carbon Dioxide 25 mmol/L (23-31); Chloride 102 mmol/L (98-107); Estimated GFR 81; Globulin 3.5 g/dL (2.4-3.5); Glucose 128 mg/dL (80-115); Potassium 4.4 mmol/L (3.5-5.1); Protein, Total 7.9 g/dL (5.8-8.1); Sodium 135 mmol/L (136-145)
[2022-09-02] MEDS ORDERED: VANCOMYCIN 2 GRAM/500 ML BAG 2 GM in Premix Bag 1 BAG IVPB SCH (13:00)
[2022-09-02 13:41] LABS: Bilirubin Negative (Negative); Blood, Urine Negative (Negative); Clarity Clear (Clear); Glucose, Urine (Dipstick) Normal (Negative); Ketone, Urine Negative (Negative); Leukocyte Negative Leu/uL (Negative); Nitrite Negative (Negative); Protein, Urine (Dipstick) Negative (Neg-Trace); Specific Gravity, Urine 1.023 (1.002-1.036); Urobilinogen Normal mg/dL (Less than 2)
[2022-09-02] MEDS ORDERED: Morphine 2 MG/ML VIAL SLOW IVP PRN (15:16)
[2022-09-02] MEDS ORDERED: Insulin Regular 300 UNITS/3 ML VIAL SC PRN (15:16)
[2022-09-02] MEDS ORDERED: Acetaminophen 500 MG TAB PO PRN (15:16)
[2022-09-02] MEDS ORDERED: Dextrose 5% in Water 1,000 ML IV PRN (15:16)
[2022-09-02] MEDS ORDERED: Ondansetron PF 4 MG/2 ML Vial IVP PRN (15:16)
[2022-09-02] MEDS ORDERED: diphenhydrAMINE 50 MG/ML VIAL IVP PRN (15:16)
[2022-09-02] MEDS ORDERED: Dextrose 50% Abboject 50 ML SYRINGE SLOW IVP PRN (15:16)
[2022-09-02] MEDS ORDERED: hydrALAZINE 20 MG/ML VIAL SLOW IVP PRN (15:16)
[2022-09-02] MEDS: Sodium Chloride 0.9% 1,000 ML IV SCH (16:00)
[2022-09-02 16:16] LABS: INR-International Normal Ratio 1.1; Prothrombin Time 14.3 sec (12.0-14.7)
[2022-09-02 16:17] LABS: PTT 31.6 sec (22.9-36.1)
[2022-09-02] MEDS ORDERED: Meropenem 1 GM in Sodium Chloride 0.9% 100 ML IVPB SCH (16:30)
[2022-09-02 16:51] VITALS: BMI 31.1
[2022-09-02 19:08] LABS: SARS-CoV-2 NAA Rapid Test Not Detected (NotDetected)
[2022-09-02] MEDS: clonazePAM 0.5 MG TAB PO SCH (20:30)
[2022-09-02] MEDS: Rosuvastatin 20 MG TAB PO SCH (20:30)
[2022-09-02] MEDS: Famotidine/PF 20 mg/2ml Vial SLOW IVP SCH (20:31)
[2022-09-02] MEDS: HYDROcodone/Acetaminophen 7.5/325 mg Tablet PO PRN (20:31)
[2022-09-02] MEDS ORDERED: Tamsulosin HCl 0.4 MG CAP PO SCH (21:00)
[2022-09-03] MEDS: Docusate 100 MG CAP PO SCH ×3 (01:29→19:57)
[2022-09-03] MEDS: Meropenem 1 GM in Sodium Chloride 0.9% 100 ML IVPB SCH ×4 (01:30→23:57)
[2022-09-03 06:11] LABS: #Eosinphils 0.2 thou/uL (0.0-0.7); #Monocytes 0.5 thou/uL (0.11-0.59); #Neutrophils 4.3 thou/uL (1.40-6.50); %Basophils 0.5 % (0.0-1.0); %Eosinophils 2.8 % (0.0-10.0); %Lymphocytes 28.1 % (21.0-51.0); %Monocytes 7.2 % (0.0-10.0); %Neutrophils 61.4 % (42.0-75.0); Mean Corpuscular HGB CONC 34.6 g/dL (32.0-36.0); Mean Corpuscular Hemoglobin 31.3 pg (27.0-31.0); Mean Corpuscular Volume 90.5 fl (78.0-98.0); Mean Platelet Volume 7.4 fL (7.4-10.4); Platelet Count 183 10x3/uL (130-400); RBC Distribution Width 12.8 % (11.5-14.5); Red Blood Cell (RBC) Count 4.47 mill/uL (4.70-6.10)
[2022-09-03 06:29] LABS: Anion Gap 12 mmol/L (10-20); BUN (Urea Nitrogen) 15 mg/dL (8.4-25.7); Calc. Creatinine Clearance 108 mL/min (70-130); Carbon Dioxide 24 mmol/L (23-31); Chloride 105 mmol/L (98-107); Estimated GFR 93; Glucose 84 mg/dL (80-115); Potassium 4.4 mmol/L (3.5-5.1); Sodium 137 mmol/L (136-145)
[2022-09-03] MEDS: Sodium Chloride 0.9% 1,000 ML IV SCH ×2 (06:42→16:32)
[2022-09-03] MEDS: Levothyroxine Sodium 50 MCG TAB PO SCH (06:44)
[2022-09-03] MEDS ORDERED: Bupivacaine 0.25% HCL 30 ML VIAL ONE ×2 (07:42→09:04)
[2022-09-03] MEDS ORDERED: Bacitracin Zinc Ointment 30 gm TUBE ONE (07:42)
[2022-09-03] MEDS ORDERED: Iopamidol 0 ML ONE (07:42)
[2022-09-03] MEDS ORDERED: fentaNYL PF 100 MCG/2 ML SYRINGE ONE ×3 (08:03→09:53)
[2022-09-03] MEDS: Famotidine/PF 20 mg/2ml Vial SLOW IVP SCH ×2 (08:10→19:55)
[2022-09-03] MEDS: DULoxetine 60 MG CAP PO SCH (08:10)
[2022-09-03] MEDS: Multivitamin W/ Minerals 1 TAB PO SCH (08:10)
[2022-09-03] MEDS ORDERED: PROPOFOL 200 MG/20 ML VIAL ONE (08:14)
[2022-09-03] MEDS ORDERED: ePHEDrine 50 MG/ML VIAL ONE (08:14)
[2022-09-03] MEDS ORDERED: Ketorolac Tromethamine 30 MG/ML VIAL ONE (08:14)
[2022-09-03] MEDS ORDERED: Labetalol HCl 100 MG/20 ML VIAL ONE (08:14)
[2022-09-03] MEDS ORDERED: Ondansetron PF 4 MG/2 ML Vial ONE (08:14)
[2022-09-03] MEDS ORDERED: Neomycin-Polymyxin 1 ML AMP ONE (08:38)
[2022-09-03] MEDS ORDERED: Tamsulosin HCl 0.4 MG CAP PO SCH (09:00)
[2022-09-03] MEDS ORDERED: Fentanyl 100 MCG/2 ML VIAL ONE ×2 (09:40→10:21)
[2022-09-03] MEDS ORDERED: HYDROmorphone 2 MG/ML VIAL SLOW IVP PRN (09:48)
[2022-09-03] MEDS ORDERED: Promethazine HCl 25 MG/ML VIAL IM PRN (09:48)
[2022-09-03] MEDS ORDERED: Ondansetron HCl/PF 4 MG/2 ML Vial IVP PRN (09:48)
[2022-09-03] MEDS ORDERED: hydrALAZINE 20 MG/ML VIAL ONE (09:51)
[2022-09-03] MEDS ORDERED: Lidocaine 2% 6 ML SYR ONE (09:53)
[2022-09-03] MEDS ORDERED: HYDROmorphone 2 MG/ML VIAL ONE (10:03)
[2022-09-03] MEDS: HYDROcodone/Acetaminophen 7.5/325 mg Tablet PO PRN ×2 (13:20→19:55)
[2022-09-03] MEDS: clonazePAM 0.5 MG TAB PO SCH (19:57)
[2022-09-03] MEDS: Rosuvastatin 20 MG TAB PO SCH (19:57)
[2022-09-04 06:11] LABS: #Basophils 0.1 thou/uL (0.0-0.2); #Eosinphils 0.2 thou/uL (0.0-0.7); #Lymphocytes 2.2 thou/uL (1.20-3.40); #Monocytes 0.8 thou/uL (0.11-0.59); #Neutrophils 7.4 thou/uL (1.40-6.50); %Basophils 0.5 % (0.0-1.0); %Eosinophils 2.3 % (0.0-10.0); %Lymphocytes 20.2 % (21.0-51.0); %Monocytes 7.5 % (0.0-10.0); %Neutrophils 69.5 % (42.0-75.0); Hemoglobin 12.8 g/dL (14.0-18.0); Mean Corpuscular HGB CONC 34.8 g/dL (32.0-36.0); Mean Corpuscular Hemoglobin 31.5 pg (27.0-31.0); Mean Corpuscular Volume 90.7 fl (78.0-98.0); Mean Platelet Volume 7.5 fL (7.4-10.4); Platelet Count 176 10x3/uL (130-400); RBC Distribution Width 12.8 % (11.5-14.5); Red Blood Cell (RBC) Count 4.05 mill/uL (4.70-6.10); White Blood Cell (WBC) Count 10.7 10x3/uL (4.8-10.8)
[2022-09-04] MEDS: Sodium Chloride 0.9% 1,000 ML IV SCH ×2 (06:15→16:54)
[2022-09-04] MEDS: Levothyroxine Sodium 50 MCG TAB PO SCH (06:15)
[2022-09-04 06:33] LABS: Anion Gap 11 mmol/L (10-20); BUN (Urea Nitrogen) 16 mg/dL (8.4-25.7); Calc. Creatinine Clearance 121 mL/min (70-130); Calcium 8.7 mg/dL (7.8-10.44); Carbon Dioxide 27 mmol/L (23-31); Chloride 102 mmol/L (98-107); Estimated GFR 99; Glucose 94 mg/dL (80-115); Sodium 136 mmol/L (136-145)
[2022-09-04] MEDS: Famotidine/PF 20 mg/2ml Vial SLOW IVP SCH ×2 (09:11→20:26)
[2022-09-04] MEDS: Meropenem 1 GM in Sodium Chloride 0.9% 100 ML IVPB SCH ×2 (09:11→16:50)
[2022-09-04] MEDS: Multivitamin W/ Minerals 1 TAB PO SCH (09:12)
[2022-09-04] MEDS: DULoxetine 60 MG CAP PO SCH (09:12)
[2022-09-04] MEDS: Docusate 100 MG CAP PO SCH ×2 (09:12→20:26)
[2022-09-04] MEDS: HYDROcodone/Acetaminophen 7.5/325 mg Tablet PO PRN ×3 (09:21→20:25)
[2022-09-04] MEDS ORDERED: Polyethylene Glycol 3350 17 GM Packet PO PRN (09:32)
[2022-09-04] MEDS: clonazePAM 0.5 MG TAB PO SCH (20:26)
[2022-09-04] MEDS: Rosuvastatin 20 MG TAB PO SCH (20:26)
[2022-09-05] MEDS: Meropenem 1 GM in Sodium Chloride 0.9% 100 ML IVPB SCH ×3 (01:27→17:36)
[2022-09-05] MEDS: Levothyroxine Sodium 50 MCG TAB PO SCH (04:49)
[2022-09-05] MEDS: Sodium Chloride 0.9% 1,000 ML IV SCH ×2 (04:50→21:25)
[2022-09-05 05:54] LABS: #Basophils 0.1 thou/uL (0.0-0.2); #Eosinphils 0.3 thou/uL (0.0-0.7); #Monocytes 0.6 thou/uL (0.11-0.59); #Neutrophils 5.7 thou/uL (1.40-6.50); %Basophils 0.6 % (0.0-1.0); %Eosinophils 3.3 % (0.0-10.0); %Lymphocytes 23.2 % (21.0-51.0); %Monocytes 7.2 % (0.0-10.0); %Neutrophils 65.6 % (42.0-75.0); Hemoglobin 13.8 g/dL (14.0-18.0); Mean Corpuscular HGB CONC 34.5 g/dL (32.0-36.0); Mean Corpuscular Hemoglobin 31.5 pg (27.0-31.0); Mean Corpuscular Volume 91.3 fl (78.0-98.0); Mean Platelet Volume 7.5 fL (7.4-10.4); Platelet Count 180 10x3/uL (130-400); RBC Distribution Width 12.7 % (11.5-14.5); Red Blood Cell (RBC) Count 4.37 mill/uL (4.70-6.10); White Blood Cell (WBC) Count 8.7 10x3/uL (4.8-10.8)
[2022-09-05 06:16] LABS: Anion Gap 13 mmol/L (10-20); BUN (Urea Nitrogen) 16 mg/dL (8.4-25.7); Calc. Creatinine Clearance 118 mL/min (70-130); Calcium 9.3 mg/dL (7.8-10.44); Carbon Dioxide 27 mmol/L (23-31); Chloride 101 mmol/L (98-107); Estimated GFR 98; Glucose 98 mg/dL (80-115); Sodium 137 mmol/L (136-145)
[2022-09-05] MEDS: Famotidine/PF 20 mg/2ml Vial SLOW IVP SCH ×2 (08:48→21:17)
[2022-09-05] MEDS: Multivitamin W/ Minerals 1 TAB PO SCH (08:49)
[2022-09-05] MEDS: Docusate 100 MG CAP PO SCH ×2 (08:49→21:17)
[2022-09-05] MEDS: DULoxetine 60 MG CAP PO SCH (08:49)
[2022-09-05] MEDS: HYDROcodone/Acetaminophen 7.5/325 mg Tablet PO PRN ×2 (08:51→21:17)
[2022-09-05] MEDS ORDERED: Polyethylene Glycol 3350 17 GM Packet PO SCH (21:00)
[2022-09-05] MEDS: Rosuvastatin 20 MG TAB PO SCH (21:17)
[2022-09-05] MEDS: Saccharomyces boulardii 250 MG CAP PO SCH (21:17)
[2022-09-05] MEDS: Senokot 8.6 MG TAB PO SCH (21:17)
[2022-09-05] MEDS: clonazePAM 0.5 MG TAB PO SCH (21:17)
[2022-09-06] MEDS: Meropenem 1 GM in Sodium Chloride 0.9% 100 ML IVPB SCH ×3 (00:27→18:19)
[2022-09-06 05:41] LABS: #Eosinphils 0.3 thou/uL (0.0-0.7); #Lymphocytes 1.9 thou/uL (1.20-3.40); #Monocytes 0.8 thou/uL (0.11-0.59); #Neutrophils 6.3 thou/uL (1.40-6.50); %Basophils 0.4 % (0.0-1.0); %Eosinophils 2.9 % (0.0-10.0); %Lymphocytes 20.3 % (21.0-51.0); %Monocytes 8.6 % (0.0-10.0); %Neutrophils 67.7 % (42.0-75.0); Hemoglobin 14.7 g/dL (14.0-18.0); Mean Corpuscular HGB CONC 34.6 g/dL (32.0-36.0); Mean Corpuscular Hemoglobin 31.6 pg (27.0-31.0); Mean Corpuscular Volume 91.1 fl (78.0-98.0); Mean Platelet Volume 7.3 fL (7.4-10.4); Platelet Count 193 10x3/uL (130-400); RBC Distribution Width 12.7 % (11.5-14.5); Red Blood Cell (RBC) Count 4.65 mill/uL (4.70-6.10); White Blood Cell (WBC) Count 9.2 10x3/uL (4.8-10.8)
[2022-09-06] MEDS: Levothyroxine Sodium 50 MCG TAB PO SCH (06:02)
[2022-09-06 06:06] LABS: Anion Gap 13 mmol/L (10-20); BUN (Urea Nitrogen) 17 mg/dL (8.4-25.7); Calc. Creatinine Clearance 116 mL/min (70-130); Calcium 9.7 mg/dL (7.8-10.44); Carbon Dioxide 29 mmol/L (23-31); Chloride 99 mmol/L (98-107); Estimated GFR 97; Glucose 97 mg/dL (80-115); Potassium 4.5 mmol/L (3.5-5.1); Sodium 136 mmol/L (136-145)
[2022-09-06] MEDS: Morphine 4 MG/ML VIAL SLOW IVP PRN (07:09)
[2022-09-06] MEDS ORDERED: Polyethylene Glycol 3350 17 GM Packet PO PRN (08:46)
[2022-09-06] MEDS: Senokot 8.6 MG TAB PO SCH ×2 (08:58→20:20)
[2022-09-06] MEDS: Famotidine/PF 20 mg/2ml Vial SLOW IVP SCH ×2 (08:58→20:20)
[2022-09-06] MEDS: Docusate 100 MG CAP PO SCH ×2 (08:59→20:20)
[2022-09-06] MEDS: DULoxetine 60 MG CAP PO SCH (08:59)
[2022-09-06] MEDS: Multivitamin W/ Minerals 1 TAB PO SCH (08:59)
[2022-09-06] MEDS: HYDROcodone/Acetaminophen 7.5/325 mg Tablet PO PRN ×2 (08:59→20:20)
[2022-09-06] MEDS: Sodium Chloride 0.9% 1,000 ML IV SCH ×2 (09:03→23:43)
[2022-09-06] MEDS: Saccharomyces boulardii 250 MG CAP PO SCH (20:20)
[2022-09-06] MEDS: clonazePAM 0.5 MG TAB PO SCH (20:20)
[2022-09-06] MEDS: Rosuvastatin 20 MG TAB PO SCH (20:20)
[2022-09-07] MEDS: Meropenem 1 GM in Sodium Chloride 0.9% 100 ML IVPB SCH ×3 (00:59→18:11)
[2022-09-07] MEDS: Levothyroxine Sodium 50 MCG TAB PO SCH (06:20)
[2022-09-07] MEDS: Sodium Chloride 0.9% 1,000 ML IV SCH (06:21)
[2022-09-07] MEDS: Multivitamin W/ Minerals 1 TAB PO SCH (09:40)
[2022-09-07] MEDS: Docusate 100 MG CAP PO SCH ×2 (09:40→21:25)
[2022-09-07] MEDS: DULoxetine 60 MG CAP PO SCH (09:40)
[2022-09-07] MEDS: Famotidine/PF 20 mg/2ml Vial SLOW IVP SCH ×2 (09:40→21:26)
[2022-09-07] MEDS: Senokot 8.6 MG TAB PO SCH ×2 (09:40→21:25)
[2022-09-07] MEDS: HYDROcodone/Acetaminophen 7.5/325 mg Tablet PO PRN (09:43)
[2022-09-07] MEDS: Saccharomyces boulardii 250 MG CAP PO SCH (21:25)
[2022-09-07] MEDS: clonazePAM 0.5 MG TAB PO SCH (21:26)
[2022-09-07] MEDS: Rosuvastatin 20 MG TAB PO SCH (21:26)
[2022-09-08] MEDS: Meropenem 1 GM in Sodium Chloride 0.9% 100 ML IVPB SCH ×3 (00:21→17:40)
[2022-09-08] MEDS: Levothyroxine Sodium 50 MCG TAB PO SCH (05:34)
[2022-09-08 06:07] LABS: #Basophils 0.1 thou/uL (0.0-0.2); #Eosinphils 0.3 thou/uL (0.0-0.7); #Lymphocytes 2.2 thou/uL (1.20-3.40); #Monocytes 0.9 thou/uL (0.11-0.59); #Neutrophils 7.4 thou/uL (1.40-6.50); %Basophils 0.6 % (0.0-1.0); %Eosinophils 2.6 % (0.0-10.0); %Monocytes 8.3 % (0.0-10.0); %Neutrophils 68.5 % (42.0-75.0); Hemoglobin 15.2 g/dL (14.0-18.0); Mean Corpuscular HGB CONC 34.2 g/dL (32.0-36.0); Mean Corpuscular Hemoglobin 31.1 pg (27.0-31.0); Mean Corpuscular Volume 90.9 fl (78.0-98.0); Mean Platelet Volume 7.4 fL (7.4-10.4); Platelet Count 215 10x3/uL (130-400); RBC Distribution Width 12.8 % (11.5-14.5); Red Blood Cell (RBC) Count 4.89 mill/uL (4.70-6.10); White Blood Cell (WBC) Count 10.8 10x3/uL (4.8-10.8)
[2022-09-08 06:29] LABS: Anion Gap 14 mmol/L (10-20); BUN (Urea Nitrogen) 22 mg/dL (8.4-25.7); Calc. Creatinine Clearance 118 mL/min (70-130); Calcium 9.8 mg/dL (7.8-10.44); Carbon Dioxide 25 mmol/L (23-31); Chloride 102 mmol/L (98-107); Estimated GFR 98; Glucose 97 mg/dL (80-115); Potassium 4.6 mmol/L (3.5-5.1); Sodium 136 mmol/L (136-145)
[2022-09-08] MEDS: Senokot 8.6 MG TAB PO SCH ×2 (09:54→21:16)
[2022-09-08] MEDS: DULoxetine 60 MG CAP PO SCH (09:54)
[2022-09-08] MEDS: Famotidine/PF 20 mg/2ml Vial SLOW IVP SCH ×2 (09:54→21:16)
[2022-09-08] MEDS: Docusate 100 MG CAP PO SCH ×2 (09:54→21:16)
[2022-09-08] MEDS: Multivitamin W/ Minerals 1 TAB PO SCH (09:54)
[2022-09-08] MEDS: Sodium Chloride 0.9% 1,000 ML IV SCH ×2 (09:59→23:36)
[2022-09-08] MEDS: Saccharomyces boulardii 250 MG CAP PO SCH (21:16)
[2022-09-08] MEDS: clonazePAM 0.5 MG TAB PO SCH (21:16)
[2022-09-08] MEDS: Rosuvastatin 20 MG TAB PO SCH (21:16)
[2022-09-09] MEDS: Meropenem 1 GM in Sodium Chloride 0.9% 100 ML IVPB SCH ×2 (01:01→09:35)
[2022-09-09] MEDS: Levothyroxine Sodium 50 MCG TAB PO SCH (06:05)
[2022-09-09] MEDS: Morphine 4 MG/ML VIAL SLOW IVP PRN (07:13)
[2022-09-09] MEDS: DULoxetine 60 MG CAP PO SCH (09:39)
[2022-09-09] MEDS: Multivitamin W/ Minerals 1 TAB PO SCH (09:39)
[2022-09-09] MEDS: Senokot 8.6 MG TAB PO SCH (09:39)
[2022-09-09] MEDS: Docusate 100 MG CAP PO SCH (09:39)
[2022-09-09] MEDS: Famotidine/PF 20 mg/2ml Vial SLOW IVP SCH (09:40)
[2022-09-09] MEDS: Sodium Chloride 0.9% 1,000 ML IV SCH (11:31)
[2022-09-09 12:19] VITALS: BP 114/74; TEMP 97.4
== END 2022-09-09 13:55 | disposition home health service (06) | DRG 711 ==
LOC: ERS 10:33 → SURG A 13:06 → OBSVTOIN 09-04 09:30
PROVIDERS: ADMIT Internal Medicine; ATTEND Internal Medicine
PROC: 0VBB0ZZ Excision of Left Testis, Open Approach (ICD-10-PCS; principal; 2022-09-03)
PROC: 0JBB0ZZ Excision of Perineum Subcutaneous Tissue and Fascia, Open Approach (ICD-10-PCS; 2022-09-03)
PROC: 0T9B80Z Drainage of Bladder with Drainage Device, Via Natural or Artificial Opening Endoscopic (ICD-10-PCS; 2022-09-03)
DX: N45.3 Epididymo-orchitis (principal); E87.1 Hypo-osmolality and hyponatremia; N13.8 Other obstructive and reflux uropathy; N45.4 Abscess of epididymis or testis; Z20.822 Contact with and (suspected) exposure to COVID-19; N40.1 Benign prostatic hyperplasia with lower urinary tract symptoms; E11.9 Type 2 diabetes mellitus without complications; I10 Essential (primary) hypertension; E03.9 Hypothyroidism, unspecified; F41.9 Anxiety disorder, unspecified; G47.00 Insomnia, unspecified; K21.9 Gastro-esophageal reflux disease without esophagitis; E78.5 Hyperlipidemia, unspecified; G89.29 Other chronic pain; Z88.8 Allergy status to other drugs, medicaments and biological substances; Z90.89 Acquired absence of other organs; Z79.899 Other long term (current) drug therapy; Z87.440 Personal history of urinary (tract) infections; Z86.16 Personal history of COVID-19; N50.89 Other specified disorders of the male genital organs; N44.2 Benign cyst of testis; N50.3 Cyst of epididymis; R93.89 Abnormal findings on diagnostic imaging of other specified body structures
CPT/HCPCS: 36415; 36416; 76870; 80048; 80053; 81003; 83605; 85025; 85610; 85730; 87040; 87070; 87086; 87205; 88305; 93976; 96365; 96366; 96367; 96374; 96375; 96376; 97139; G0378; J0360; J0692; J1170; J1885; J2185; J2270; J2405; J2704; J3010; J3370; J3490; J7050; Q9967; S0020; S0028; U0002

== ENCOUNTER 2025-06-19 15:53 | Emergency (ER) | payer MEDICARE, OTHER ==
[2025-06-19 17:28] LABS: #Basophils 0.03 10x3/uL (0.0-0.2); #Eosinophils Less than 0.03 10x3/uL (0.0-0.7); #Monocytes 0.24 10x3/uL (0.11-0.59); #Neutrophils 6.01 10x3/uL (1.40-6.50); %Basophils 0.4 % (0.0-1.0); %Eosinophils 0.1 % (0.0-10.0); %Lymphocytes 11.9 % (21.0-51.0); %Monocytes 3.4 % (0.0-10.0); %Neutrophils 83.9 % (42.0-75.0); Hematocrit 47.3 % (42.0-52.0); Hemoglobin 17.2 g/dL (14.0-18.0); Mean Corpuscular Hemoglobin 31.3 pg (27.0-31.0); Mean Corpuscular Volume 86.2 fL (78.0-98.0); Platelet Count 181 10x3/uL (130-400); Red Blood Cell (RBC) Count 5.49 mill/uL (4.70-6.10); White Blood Cell (WBC) Count 7.16 10x3/uL (4.8-10.8)
[2025-06-19 17:57] LABS: ALT (SGPT) 66 U/L (Less than 45); AST (SGOT) 45 U/L (11-34); Albumin 5.0 g/dL (3.1-4.5); Alkaline Phosphatase 85 U/L (40-110); Anion Gap 16 mmol/L (10-20); BUN (Urea Nitrogen) 14 mg/dL (8.4-25.7); Bilirubin, Total 0.8 mg/dL (0.3-1.2); Calc. Creatinine Clearance 0 mL/min (70-130); Calcium 10.5 mg/dL (7.8-10.44); Carbon Dioxide 24 mmol/L (23-31); Chloride 105 mmol/L (98-107); Globulin 3.3 g/dL (2.4-3.5); Glucose 117 mg/dL (80-115); Potassium 4.6 mmol/L (3.5-5.1); Sodium 140 mmol/L (136-145)
== END 2025-06-19 19:01 | disposition home or self-care (01) ==
LOC: ERS 15:53
DX: R13.10 Dysphagia, unspecified (principal); I10 Essential (primary) hypertension; E11.9 Type 2 diabetes mellitus without complications
CPT/HCPCS: 70491; 80053; 85025

== ENCOUNTER 2025-07-21 12:00 | Emergency (ER) | payer MEDICARE, OTHER ==
[2025-07-21] MEDS ORDERED: Iopamidol-370 76% 500 ML MDV (1 ML CHARGE) ONE (12:54)
[2025-07-21 13:47] LABS: #Basophils 0.06 10x3/uL (0.0-0.2); #Eosinophils 0.05 10x3/uL (0.0-0.7); #Monocytes 0.74 10x3/uL (0.11-0.59); #Neutrophils 6.89 10x3/uL (1.40-6.50); %Basophils 0.6 % (0.0-1.0); %Eosinophils 0.5 % (0.0-10.0); %Lymphocytes 17.1 % (21.0-51.0); %Monocytes 7.8 % (0.0-10.0); %Neutrophils 72.5 % (42.0-75.0); Hematocrit 49.0 % (42.0-52.0); Hemoglobin 16.7 g/dL (14.0-18.0); Mean Corpuscular Hemoglobin 30.2 pg (27.0-31.0); Mean Corpuscular Volume 88.6 fL (78.0-98.0); Platelet Count 205 10x3/uL (130-400); Red Blood Cell (RBC) Count 5.53 mill/uL (4.70-6.10); White Blood Cell (WBC) Count 9.51 10x3/uL (4.8-10.8)
[2025-07-21 14:04] LABS: ALT (SGPT) 61 U/L (Less than 45); AST (SGOT) 38 U/L (11-34); Albumin 4.6 g/dL (3.1-4.5); Alkaline Phosphatase 82 U/L (40-110); Anion Gap 12 mmol/L (10-20); BUN (Urea Nitrogen) 21 mg/dL (8.4-25.7); Bilirubin, Total 0.7 mg/dL (0.3-1.2); Calc. Creatinine Clearance 0 mL/min (70-130); Calcium 9.6 mg/dL (7.8-10.44); Carbon Dioxide 28 mmol/L (23-31); Chloride 106 mmol/L (98-107); Globulin 2.9 g/dL (2.4-3.5); Glucose 121 mg/dL (80-115); Potassium 4.8 mmol/L (3.5-5.1); Sodium 141 mmol/L (136-145)
[2025-07-21] MEDS ORDERED: Milk Of Magnesia 30 ML UDCUP ONE (17:09)
[2025-07-21] MEDS ORDERED: Lidocaine Viscous Sol 2% 15 ml UD Cup ONE (17:10)
== END 2025-07-21 17:13 | disposition home or self-care (01) ==
LOC: ERS 12:00
DX: K22.10 Ulcer of esophagus without bleeding (principal); R13.10 Dysphagia, unspecified; I10 Essential (primary) hypertension; E11.9 Type 2 diabetes mellitus without complications
CPT/HCPCS: 70491; 80053; 85025; 96374; 99284; Q9967

== ENCOUNTER 2025-08-06 09:52 | Day surgery (SDC) | payer MEDICARE, OTHER ==
[2025-08-05 08:56] VITALS: BMI 30.5
[2025-08-06] MEDS ORDERED: PROPOFOL 20 ML ONE (11:30)
[2025-08-06] MEDS ORDERED: LevoFLOXacin D5W 500 mg (100 mL) BAG ONE (11:51)
[2025-08-06] MEDS ORDERED: PROPOFOL 200 MG/20 ML VIAL ONE (13:04)
[2025-08-06] MEDS ORDERED: Ondansetron PF 4 MG/2 ML Vial ONE (13:08)
[2025-08-06] MEDS ORDERED: Oxybutynin 5 MG TAB ONE (14:04)
== END 2025-08-06 16:25 | disposition home or self-care (01) ==
LOC: SDC 09:52
PROVIDERS: ATTEND Urology
PROC: 0TQD0ZZ Repair Urethra, Open Approach (ICD-10-PCS; principal; 2025-08-06)
DX: N35.916 Unspecified urethral stricture, male, overlapping sites (principal); I10 Essential (primary) hypertension; K21.9 Gastro-esophageal reflux disease without esophagitis; N40.1 Benign prostatic hyperplasia with lower urinary tract symptoms; N44.2 Benign cyst of testis; E11.65 Type 2 diabetes mellitus with hyperglycemia; Z88.6 Allergy status to analgesic agent; Z88.8 Allergy status to other drugs, medicaments and biological substances; Z90.89 Acquired absence of other organs; Z86.73 Personal history of transient ischemic attack (TIA), and cerebral infarction without residual deficits; Z90.49 Acquired absence of other specified parts of digestive tract; Z98.890 Other specified postprocedural states; Z79.899 Other long term (current) drug therapy
CPT/HCPCS: 52276; 93005; A4333; A4340; C1769 ×2; J1100; J1956; J2405; J2704; J3010; 93010